=== PATIENT | female | born 1925 | race Caucasian/White ===

== ENCOUNTER 2017-01-16 08:07 | Emergency (ER) | payer MEDICARE ==
[2017-01-16] MEDS ORDERED: Aspirin Low Dose CHEW TAB* 81 MG PO ONE (08:25)
[2017-01-16 08:33] LABS: Hematocrit 30 % (35-47); Hemoglobin 9.7 g/dl (12.0-16.0); Mean Corpuscular HGB Conc 32 g/dl (31-36); Mean Corpuscular Hemoglobin 27 pg (27-31); Mean Corpuscular Volume 84 fL (80-97); Mean Platelet Volume 8 um3 (7.4-10.4); Red Blood Count 3.57 10^6/ul (4.0-5.4); Red Cell Distribution Width 15 % (10.5-15); White Blood Count 6.5 10^3/ul (3.5-10.8)
[2017-01-16 08:44] LABS: Albumin 3.6 g/dL (3.2-5.2); BUN/Creatinine Ratio 27.4 (8-20); Calcium 9.4 mg/dL (8.6-10.3); EGFR African American 52.4 (>60); EGFR Non-African American 40.7 (>60); Potassium 4.2 mmol/L (3.5-5.0); Total Bilirubin 0.6 mg/dL (0.2-1.0); Total Protein 6.6 g/dL (6.4-8.9)
[2017-01-16 08:46] LABS: Troponin I 0.03 ng/mL (<0.04)
--- NOTE | 2017-01-16 08:54 | RAD ---
INDICATION: Shortness of breath. COMPARISON: Comparison is made with a prior chest x-ray study from August 17, 2016. TECHNIQUE: A portable view of the chest was obtained. FINDINGS: The heart appears mildly enlarged and unchanged from the prior exam. There is a transvenous cardiac pacemaker present. There is mild prominence of the interstitial markings and small bilateral pleural effusions. IMPRESSION: FINDINGS SUGGESTIVE OF MILD CONGESTIVE HEART FAILURE.
[2017-01-16 12:22] VITALS: BP 179/82
--- NOTE | 2017-01-16 15:54 | CONS ---
CONSULTATION REPORT: DATE OF CONSULT: 01/16/17 SERVICE REQUESTING CONSULTATION: Emergency department. REASON FOR CONSULT: Left arm pain. PRIMARY CARE PROVIDER: Dr. Marr EDUCATION COUNSELOR: Dr. Boucher. HEALTHCARE PROXY: [id number], Yanely Ragland. CODE STATUS: DNR/DNI, confirmed with the patient and her healthcare proxy. HISTORY OBTAINED: From review of past medical records and interview with the patient and Yanely. RELIABILITY: Excellent. CHIEF COMPLAINT: Left arm pain. HISTORY OF PRESENT ILLNESS: This is an 89-year-old female, complicated past medical history including known CAD noted in June 2015 prior to aortic valve replacement. Also in 2014, history of chronic diastolic heart failure, AV lakia ablation, status post permanent pacemaker, hypertension, and BRITTANIE not on CPAP, who reports overnight she had difficulty sleeping largely because of the anxiety secondary to her friends recently suffering an accident. She awoke at 6 a.m. this morning and ate breakfast, after which she developed left arm aching "into the bone" radiating to the tips of her finger. She notes that the tips of her finger went numb for about 20 minutes, all of which improved after taking a "painkiller." She noted breathing was "harder" and associated weakness without nausea, vomiting, lightheadedness, chest discomfort, or palpitations. She notes in general, she has intermittent chest pressure that lasts for seconds. Additionally in general, has been noting palpitations in the morning that lasts for 10 to 15 minutes for which she feels weak until they resolve. She has currently been taking antibiotics for the last 4 to [address] Marr's office with improvement in neck swelling. She is wheelchair- bound secondary to lower back and leg pain as well as shortness of breath. She can ambulate 4 to 6 feet at baseline using the wheelchair as a walker. She states she has stable 3-pillow orthopnea. No PND. No changes in her lower extremity edema or her weight. No fevers, chills, or night sweats. No cough or sputum production. When seen by this author, the patient was sitting in a chair. She was interactive. She feels back to her baseline, status post receiving aspirin in the emergency room. PAST MEDICAL HISTORY: 1. COPD, on 2 L home oxygen. 2. Chronic lower back pain. 3. Aortic valve replacement - TAVR 2014. 4. CAD, status post catheterization in June 2010. The patient reports cardiac arrest during catheterization, that is not documented here. 5. AV lakia ablation, status post permanent pacemaker. 6. Hypertension. 7. Atrial fibrillation. 8. GERD. 9. Type 2 diabetes. 10. BRITTANIE, not on BiPAP or CPAP. 11. Chronic anemia with concern for slow GI bleed. 12. Constipation. 13. Restless leg syndrome. 14. History of polymyalgia rheumatica. 15. Hyperlipidemia. 16. History of cholecystectomy and lumbar surgery. MEDICATIONS: Include: 1. Omeprazole 20 mg twice daily. 2. Aspirin 81 mg daily. 3. IFerex Poly-Iron twice daily. 4. Colace 100 mg twice daily. 5. Lasix 80 mg Wednesday through Wednesday. 6. Glucosamine chondroitin 500 mg twice daily. 7. Gabapentin 200 mg 3 times daily. 8. Atenolol 50 mg daily increased from 25 mg recently. 9. Dulera 200/5 two puffs twice daily. 10. Spironolactone 25 mg Wednesday, Wednesday, Wednesday. 11. Pramipexole 0.5 mg in the evening. 12. Potassium chloride 20 mEq in the evening. 13. Magnesium oxide 400 mg daily. 14. Oxycodone one tablet every 4 hours as needed. 15. Vagifem 10 mcg on Saturdays. 16. Hydrocodone cough syrup 4 times a day as needed. 17. Calcium carbonate 500 mg as needed. ALLERGIES: CEPHALOSPORINS, DIPYRIDAMOLE, FLUTICASONE, PENICILLINS, SIMVASTATIN , BACTRIM, TRAMADOL, COUMADIN, RED RICE YEAST. FAMILY HISTORY: Reviewed and noncontributory. SOCIAL HISTORY: No history of illicits, including tobacco or alcohol. Lives at [place]. REVIEW OF SYSTEMS: As per HPI, otherwise all other systems negative. PHYSICAL EXAM: Vital Signs: Blood pressure 167/68, heart rate is 57, respiratory rate is 14, T-max is 98.4, O2 sat is 99% on 2 L oxygen. General: Obese woman sitting up in chair, interactive, pleasant, talks in full sentences , in no apparent distress. HEENT: Oropharynx is clear, moist mucous membranes. Sclerae anicteric. She has elevated JVD, sitting at 90 degrees in bed. She has no cervical or supraclavicular lymphadenopathy. No evidence of previous cellulitis on her neck. Heart: She has a regular rate and rhythm. She has a soft, 2/6 systolic ejection murmur. Lungs: Clear to auscultation. Abdomen: Soft and nontender. Extremities: Warm and well perfused. She has 1+ lower extremity edema bilaterally. She is currently wearing compression stockings. Good skin turgor. Less than 2 seconds capillary refill. Neuro: She is alert and oriented x3. Cranial nerves II through XII are intact. Gait not assessed. She uses a wheelchair. Psych: No apparent anxiety, agitation, or depression. DIAGNOSTIC STUDIES/LAB DATA: Reviewed, notable for hemoglobin 9.7. Lactic acid 0.8. BUN 34, creatinine 1.24, troponin I 0.03. Data reviewed. Chest x-ray suggestive of mild congestive heart failure. EKG paced, 60 beats per minute. ASSESSMENT AND PLAN: This is an 89-year-old female, complicated past medical history including known coronary artery disease, status post aortic valve replacement, chronic obstructive pulmonary disease, on home oxygen, diabetes, atrial fibrillation, obstructive sleep apnea, chronic anemia with suspected gastrointestinal bleed, presented to the hospital with left arm pain lasting for about 20 minutes concerning for cardiac etiology. I had a prolonged conversation with the patient and her healthcare proxy. We discussed the probability that this could indeed represent cardiac disease. The patient is very clear and has considered her goals of care thoroughly. At this point, she recognizes the progressive nature of both her coronary artery disease as well as her congestive heart failure. She lists her goals as continuing to stay at home and when she dies, to do so comfortably. She is adamant that she would not want to pursue further cardiac catheterization as it was stressful on her previous attempt, as well as she sees no benefit and it would only prolong her life as the rest of her heart declines. She has pursued hospice in the past and met with Dr. Ross; however, not deemed to be a candidate as of yet. She would like to pursue palliative care at home, so that if she has similar pain at home, she would not be inclined to come to the hospital for supportive pain relief. She notes that she has recently received medical marijuana, which has been significantly helpful for chronic abdominal and lower back pain. We did discuss the ability of Dr. Marr to prescribe medications to further help control her pain at home, including sublingual morphine and potential for palliative care services once that becomes available in our community. At this point, the patient does not require hospital stay as this is not consistent with her goals of care, which will be to stay at home and be comfortable. At this point, the patient has no pain. She is well controlled and will return home with her healthcare proxy. They understand that they can return at anytime and should do so if symptoms are worrisome, she wants evaluation, or pain is not controlled. I encouraged her to discuss with Dr. Marr/her primary care provider as well as her inside sales recruiter to help her remain at [place]/home pain-free and comfortable in order to achieve her goals of care and avoid the hospital should it not be needed. TIME SPENT: Greater than 60 minutes was spent on the consultation of this patient. CC: Dr. Marr, Dr. Boucher * [id number]/CPS #: [id number]
--- NOTE | 2017-01-17 14:37 | ED ---
Fabio Crowder SooYoung, scribed for Arthur Lang MD on 01/16/17 at 0846 . Shortness of Breath - HPI Summary HPI Summary: An 89 y/o F BIBRochelle presents to ED with c/o LUE pain from shoulder to finger tips onset approx [id number]. Associated sx: numbness in finger tips, dizzy/ lightheaded. Pain came on when she was getting dress. Denies: CP, numbness to jaw. Pt has rx for medical marijuana for back pain, which has alleviated the arm pain. Pt is currently under stress due to a friend's accident. She notes she did not sleep well last night. PShx: valve replacement. PMHx: HTN. Nonsmoker, nondrinker. Pt is on home O2. - History of Current Complaint Chief Complaint: EDShortnessOfBreath Time Seen by Provider: 01/16/17 08:25 Hx Obtained From: Patient, Family/Irrigation Laborer Onset/Duration: Sudden Onset, Lasting Hours, Still Present Timing: Constant - Allergy/Home Medications Allergies/Adverse Reactions: Allergies Allergy/AdvReac Type Severity Reaction Status Date / Time Cephalosporins Allergy SENSITIVITY Verified 01/16/17 09:28 Dipyridamole Allergy SENSITIVITY Verified 01/16/17 09:28 Fluticasone [From Flonase] Allergy SENSITIVITY Verified 01/16/17 09:28 Penicillins Allergy "Jaw Verified 01/16/17 09:28 stiffened up" Simvastatin Allergy MYALGIAS Verified 01/16/17 09:28 Sulfamethoxazole Allergy SENSITIVITY Verified 01/16/17 09:28 w/Trimethoprim [From Septra] Tramadol Allergy SENSITIVITY Verified 01/16/17 09:28 Warfarin [From Coumadin] Allergy BRAND NAME Verified 01/16/17 09:28 - HIVES RED RICE YEAST Allergy SENSITIVITY Uncoded 10/19/16 14:18 Home Medications: Home Medications Atenolol TAB* [Tenormin TAB* 50 MG] 50 mg PO DAILY 01/16/17 [History Confirmed 01/16/17] Cephalexin CAP* [Keflex CAP*] 250 mg PO Q6HR 01/16/17 [History Confirmed ] Estradiol VAGINAL TAB(NF) [Vagifem(NF)] 10 mcg VA SEE INSTRUCTIONS 01/16/17 [ History Confirmed 01/16/17] Iron Polysaccharide Complex- [Iferex 150 Forte] 1 cap PO BID 01/16/17 [ History Confirmed 01/16/17] PMH/Surg Hx/FS Hx/Imm Hx Previously Healthy: No Endocrine/Hematology History: Reports: Hx Anticoagulant Therapy - Warfarin, Hx Diabetes, Hx Anemia - iron deficiency Denies: Hx Thyroid Disease - Shows up in history but denies Cardiovascular History: Reports: Hx Auto Implanted Cardiovert Defib, Hx Cardiomegaly, Hx Congestive Heart Failure, Hx Coronary Artery Disease, Hx Hypercholesterolemia, Hx Hypertension, Hx Pacemaker/ICD, Hx Peripheral Vascular Disease, Hx Valvular Heart Disease - Aortic valve replaced, Other Cardiovascular Problems/Disorders - CAD, HEART MURMUR Respiratory History: Reports: Hx Pleural Effusion, Hx Sleep Apnea - refuses machine, Other Respiratory Problems/Disorders - O2 2L dependent Denies: Hx Asthma, Hx Chronic Obstructive Pulmonary Disease (COPD) GI History: Reports: Hx Gastroesophageal Reflux Disease, Hx Irritable Bowel History: Denies: Hx Renal Disease Musculoskeletal History: Reports: Hx Arthritis, Hx Back Problems - spinal stenosis, Other Musculoskeletal History - left hip pain, arthritis Sensory History: Reports: Hx Cataracts, Hx Contacts or Glasses, Hx Glaucoma, Hx Macular Degeneration, Hx Hearing Aid - at home, Hx Hearing Problem, Other Sensory Impairments - peropheral neuropathy Opthamlomology History: Reports: Hx Cataracts, Hx Contacts or Glasses, Hx Glaucoma, Hx Macular Degeneration, Other Sensory Impairments - peropheral neuropathy Neurological History: Reports: Hx Headaches, Hx Migraine, Hx Transient Ischemic Attacks (TIA) - 2011, Other Neuro Impairments/Disorders - spinal stenosis, peroph. neuropathy, MENTASTA Denies: Hx Dementia, Hx Seizures Psychiatric History: Reports: Hx Anxiety - off meds now (cured?) Denies: Hx Substance Abuse - Surgical History Surgery Procedure, Year, and Place: pacemaker, cholecystectomy, cataracts, appendectomy, tonsils, spinal stenosis vertibrea removed, TAVR, Carpal tunnel repair Hx Anesthesia Reactions: No - Immunization History Date of Tetanus Vaccine: remote Date of Influenza Vaccine: 2015 Infectious Disease History: No Infectious Disease History: Denies: Hx Clostridium Difficile, Hx Hepatitis, Hx Human Immunodeficiency Virus (HIV), Hx Shingles, Hx Tuberculosis, Traveled Outside the [place] in Last 30 Days - Family History Known Family History: Positive: Cardiac Disease - father and brother Negative: Other - malignant hyperthermia Family History: Patient is unsure of her family medical history - she states she is not close to her family - Social History Occupation: Retired Lives: Alone Alcohol Use: None Hx Substance Use: No Substance Use Type: Reports: None Hx Tobacco Use: Yes Smoking Status (MU): Former Smoker Type: Cigarettes Amount Used/How Often: 1 YEAR Length of Time of Smoking/Using Tobacco: 1 yr Have You Smoked in the Last Year: No Review of Systems Negative: Fever, Chills Negative: Erythema Negative: Sore Throat Negative: Chest Pain Negative: Shortness Of Breath, Cough Negative: Abdominal Pain, Vomiting, Nausea Negative: dysuria, hematuria Positive: Myalgia - pain LUE. Negative: Edema Negative: Rash Neurological: Other - pos: dizziness Positive: Numbness - in fingertips All Other Systems Reviewed And Are Negative: Yes Physical Exam - Summary Physical Exam Summary: Constitutional: Well-developed, Well-nourished, Alert. (-) Distressed Skin: Warm, Dry HENT: Normocephalic; Atraumatic Eyes: Conjunctiva normal Neck: Musculoskeletal ROM normal neck. (-) JVD, (-) Stridor, (-) Tracheal deviation Cardio: Rhythm regular, rate normal, Heart sounds normal; Intact distal pulses; The pedal pulses are 2+ and symmetric. Radial pulses are 2+ and symmetric. (-) Murmur Pulmonary/Chest wall: Effort normal. (-) Respiratory distress, (-) Wheezes, (-) Rales Abd: Soft, (-) Tenderness, (-) Distension, (-) Guarding, (-) Rebound Musculoskeletal: (-) Edema Lymph: (-) Cervical adenopathy Neuro: Alert, Oriented x3 Psych: Mood and affect Normal Triage Information Reviewed: Yes Vital Signs On Initial Exam: Initial Vitals Temp Pulse Resp BP Pulse Ox 97.9 F 72 15 160/90 98 01/16/17 08:08 01/16/17 08:08 01/16/17 08:08 01/16/17 08:08 01/16/17 08:08 Vital Signs Reviewed: Yes Diagnostics - Vital Signs Vital Signs Temp Pulse Resp BP Pulse Ox 01/16/17 08:30 59 17 172/56 97 01/16/17 08:25 56 15 150/85 97 01/16/17 08:24 98.4 F 56 20 172/56 98 01/16/17 08:15 67 22 98 01/16/17 08:08 97.9 F 72 15 160/90 98 - Laboratory Lab Results: Lab Results 01/16/17 Range/Units 08:23 WBC 6.5 (3.5-10.8) 10^3/ul RBC 3.57 L (4.0-5.4) 10^6/ul Hgb 9.7 L (12.0-16.0) g/dl Hct 30 L (35-47) % MCV 84 (80-97) fL MCH 27 (27-31) pg MCHC 32 (31-36) g/dl RDW 15 (10.5-15) % Plt Count 153 (150-450) 10^3/ul MPV 8 (7.4-10.4) um3 Neut % (Auto) 74.3 (38-83) % Lymph % (Auto) 8.7 L (25-47) % Miner % (Auto) 13.9 H (1-9) % Eos % (Auto) 2.5 (0-6) % Baso % (Auto) 0.6 (0-2) % Absolute Neuts (auto) 4.9 (1.5-7.7) 10^3/ul Absolute Lymphs (auto) 0.6 L (1.0-4.8) 10^3/ul Absolute Monos (auto) 0.9 H (0-0.8) 10^3/ul Absolute Eos (auto) 0.2 (0-0.6) 10^3/ul Absolute Basos (auto) 0 (0-0.2) 10^3/ul Absolute Nucleated RBC 0 10^3/ul Nucleated RBC % 0 Result Diagrams: 01/16/17 08:23 01/16/17 08:23 Lab Statement: Any lab studies that have been ordered have been reviewed, and results considered in the medical decision making process. - Radiology CXR Xray Interpretation: Positive (See Comments) - IMPRESSION: Findings suggestive of mild CHF Radiology Interpretation Completed By: Radiologist - EKG 1 EKG Interpretation: no STEMI, ventricular-paced complexes, 65 bpm Re-Evaluation - Re-Evaluation 1 Re-Evaluation Time: 11:23 Change: Improved Comment: Discussed with pt and family members present, she does not want invasive procedure in case of heart attack, will pursue comfort care as outpatient. Course/Dx - Course Course Of Treatment: Pt is an 89 y/o F presenting with c/o LUE pain from shoulder to finger tips onset approx [id number]. Associated sx: numbness in finger tips, dizzy/lightheaded. Denies: CP, numbness to jaw. Medical marijuana alleviated the pain. Pt is currently under stress, she did not sleep well last night. CXR findings suggestive of mild CHF. Pt given aspirin in ED. Spoke with hospitalist, Dr. Stone, agreed to observe. Spoke to Dr. Wilhelm who recommends D/C. Upon reeval, discussed with pt and family, comfort care and not doing invasive procedures. Will D/C home to f/u with PCP on Wednesday. - Diagnoses Provider Diagnoses: angina - Physician Notifications Discussed Care of Patient With: 0919: Dr. Stone, hospitalist, admit/observe. 1118: Dr. Wilhelm, hospitalist: evaluated pt, pt can be D/C home. Pt wants palliative care, but is not within 6 months of dying; does not want any medical interventions, only wants to be comfortable. Discharge - Discharge Plan Condition: Stable Disposition: HOME The documentation as recorded by the Fabio velásquez SooYoung accurately reflects the service I personally performed and the decisions made by me, Arthur Lang MD.
== END 2017-01-16 12:08 | disposition home or self-care (01) ==
LOC: ED 08:07 → UNDOADMOB 09:39 → MEDTELE 09:39
DX: I20.9 Angina pectoris, unspecified (principal); R42 Dizziness and giddiness; Z87.891 Personal history of nicotine dependence; M79.1 Myalgia
CPT/HCPCS: 36415; 71010; 80053; 83605; 84484; 85025; 93005; 99283; A9270-GY